=== PATIENT | female | born 2005 | race African-American/Black ===

== ENCOUNTER 2023-09-13 13:50 | Emergency (ER) | payer MEDICAID ==
[~2023-09-13] VITALS: Ht 167.6 cm; Wt 79.0 kg
[2023-09-13 13:57] VITALS: BP 108/55; TEMP 98.4; O2SAT 99
[2023-09-13 13:59] VITALS: PULSE 100; RESP 16
[2023-09-13] MEDS ORDERED: AZITHROMYCIN 500 MG TABLET PO ONE (15:30)
[2023-09-13] MEDS ORDERED: CEFTRIAXONE SODIUM 500 MG/VIAL IM ONE (15:30)
[2023-09-13 17:15] LABS: CLARITY URINE CLOUDY (CLEAR); COLOR URINE DARK YELLOW (YELLOW); GLUCOSE URINE NEGATIVE (NEGATIVE); KETONES URINE NEGATIVE (NEGATIVE); LEUKOCYTE ESTERASE URINE 2+ (NEGATIVE); NITRITE URINE NEGATIVE (NEGATIVE); OCCULT BLOOD URINE NEGATIVE (NEGATIVE); PROTEIN URINE TRACE (NEGATIVE); SPECIFIC GRAVITY URINE 1.025 (1.005-1.030)
[2023-09-13] MEDS ORDERED: CEFTRIAXONE SODIUM 500 MG/VIAL IM NR (17:15)
[2023-09-13] MEDS ORDERED: AZITHROMYCIN 500 MG TABLET PO NR (17:15)
[2023-09-13] MEDS ORDERED: CEPH500C2 MT (17:55)
[2023-09-13] MEDS ORDERED: VALA100044 MT (18:02)
[2023-09-13 18:16] LABS: MUCUS URINE 2+ /lpf (< = 2+); SQUAMOUS EPITHELIAL CELL URINE 3+ /lpf (RARE/1+)
[2023-09-13 18:17] LABS: RBC URINE 0-2 /hpf (0-2)
[2023-09-13 18:18] LABS: BACTERIA URINE 2+
[2023-09-16 09:07] LABS: CHLAMYDIA TRACHOMATIS NAA Positive (Negative); NEISSERIA GONORRHOEAE NAA Positive (Negative)
== END 2023-09-13 18:21 | disposition home or self-care (01) ==
LOC: ER 14:02
DX: O26.891 Other specified pregnancy related conditions, first trimester (principal); J45.909 Unspecified asthma, uncomplicated; Z3A.01 Less than 8 weeks gestation of pregnancy
CPT/HCPCS: 87491; 87591; 81003; 81025; 86592; 96372; 99283; J0696; Z7610 ×2

== ENCOUNTER 2025-01-21 14:16 | Emergency (ER) | payer MEDICAID ==
[~2025-01-21] VITALS: Ht 170.2 cm; Wt 73.0 kg
[2025-01-21 14:16] VITALS: O2SAT 98
[~2025-01-21 14:16] MED LIST: CEPH500C2 MT; VALA100044 MT
[2025-01-21 14:20] VITALS: BP 103/53; PULSE 89; RESP 16; TEMP 37; O2SAT 98
[2025-01-21] MEDS ORDERED: DOXYCYCLINE HYCLATE 100MG CAPSULE PO ONE (15:00)
[2025-01-21] MEDS ORDERED: DOXY100C74 MT (15:11)
[2025-01-21] MEDS ORDERED: METR-167 MT (15:11)
[2025-01-21] MEDS: CEFTRIAXONE SODIUM 500MG VIAL IM ONE (15:46)
[2025-01-21] MEDS: AZITHROMYCIN 500 MG TABLET PO ONE (15:46)
[2025-01-25 04:07] LABS: CHLAMYDIA TRACHOMATIS NAA Positive (Negative); NEISSERIA GONORRHOEAE NAA Negative (Negative)
== END 2025-01-21 15:49 | disposition home or self-care (01) ==
LOC: ER 14:16
DX: N76.0 Acute vaginitis (principal); J45.909 Unspecified asthma, uncomplicated; Z79.624 Long term (current) use of inhibitors of nucleotide synthesis
CPT/HCPCS: 99283; 87491; 87591; 81025; 96372; J0696

== ENCOUNTER 2025-02-20 09:57 | Emergency (ER) | payer MEDICAID ==
[~2025-02-20] VITALS: Ht 170.2 cm; Wt 77.3 kg
[~2025-02-20 09:57] MED LIST changes: +METR-167 MT
[2025-02-20 10:34] VITALS: BP 108/63; PULSE 92; RESP 18; TEMP 36.7; O2SAT 99
== END 2025-02-20 12:05 | disposition left against medical advice (07) ==
LOC: ER 09:57
DX: Z00.8 Encounter for other general examination (principal); J45.909 Unspecified asthma, uncomplicated; Z53.21 Procedure and treatment not carried out due to patient leaving prior to being seen by health care provider
CPT/HCPCS: 81025

== ENCOUNTER 2025-02-22 14:42 | Emergency (ER) | payer MEDICAID ==
[~2025-02-22] VITALS: Ht 170.2 cm; Wt 72.0 kg
[2025-02-22 14:48] VITALS: O2SAT 100
[2025-02-22 14:59] VITALS: BP 99/64; PULSE 60; RESP 16; TEMP 37; O2SAT 100
[2025-02-22 16:57] LABS: CLARITY URINE CLEAR (CLEAR); COLOR URINE YELLOW (YELLOW); GLUCOSE URINE NEGATIVE (NEGATIVE); KETONES URINE NEGATIVE (NEGATIVE); LEUKOCYTE ESTERASE URINE TRACE (NEGATIVE); NITRITE URINE NEGATIVE (NEGATIVE); OCCULT BLOOD URINE NEGATIVE (NEGATIVE); PH URINE 7.5 (4.5-8.0); PROTEIN URINE NEGATIVE (NEGATIVE); SPECIFIC GRAVITY URINE 1.012 (1.005-1.030); UROBILINOGEN URINE 0.2 E.U./dL (0.2-1.0)
[2025-02-22 17:29] LABS: BACTERIA URINE TRACE; RBC URINE 0-2 /hpf (0-2); SQUAMOUS EPITHELIAL CELL URINE FEW /lpf (RARE/1+); WBC URINE 0-2 /hpf (0-2)
[2025-02-22] MEDS ORDERED: PREN-99 MT (19:33)
[2025-02-22] MEDS: CEFTRIAXONE SODIUM 500MG VIAL IM ONE (19:50)
[2025-02-22] MEDS: AZITHROMYCIN 500 MG TABLET PO NR (20:00)
== END 2025-02-22 20:01 | disposition home or self-care (01) ==
LOC: ER 14:42
DX: O26.891 Other specified pregnancy related conditions, first trimester (principal); N89.8 Other specified noninflammatory disorders of vagina; Z20.2 Contact with and (suspected) exposure to infections with a predominantly sexual mode of transmission; Z79.899 Other long term (current) drug therapy; Z79.624 Long term (current) use of inhibitors of nucleotide synthesis; Z3A.09 9 weeks gestation of pregnancy
CPT/HCPCS: 99285; 76801; 86592; 87491; 87591; 81003; 84702; 36415; 96372; J0696

== ENCOUNTER 2025-05-24 19:55 | Emergency (ER) | payer MEDICAID, OTHER ==
[~2025-05-24 19:55] MED LIST changes: +PREN-99 MT
[2025-05-24 21:37] LABS: CLARITY URINE CLEAR (CLEAR); COLOR URINE YELLOW (YELLOW); GLUCOSE URINE NEGATIVE (NEGATIVE); KETONES URINE NEGATIVE (NEGATIVE); LEUKOCYTE ESTERASE URINE 1+ (NEGATIVE); NITRITE URINE NEGATIVE (NEGATIVE); OCCULT BLOOD URINE NEGATIVE (NEGATIVE); PH URINE 6.5 (4.5-8.0); PROTEIN URINE NEGATIVE (NEGATIVE); SPECIFIC GRAVITY URINE 1.009 (1.005-1.030); UROBILINOGEN URINE 0.2 E.U./dL (0.2-1.0)
[2025-05-24 21:47] LABS: BACTERIA URINE 1+; RBC URINE 0-2 /hpf (0-2); SQUAMOUS EPITHELIAL CELL URINE 2+ /lpf (RARE/1+)
[2025-05-24 22:19] VITALS: BP 120/69; PULSE 77; RESP 16; O2SAT 98
[2025-05-26 06:10] LABS: HSV TYPE 2 SPECIFIC AB IGG Reactive (Non Reactive)
[2025-05-27 04:10] LABS: CHLAMYDIA TRACHOMATIS NAA Negative (Negative); NEISSERIA GONORRHOEAE NAA Negative (Negative)
== END 2025-05-24 22:22 | disposition left against medical advice (07) ==
LOC: ER 19:55
DX: O26.892 Other specified pregnancy related conditions, second trimester (principal); O23.592 Infection of other part of genital tract in pregnancy, second trimester; N89.8 Other specified noninflammatory disorders of vagina; Z79.624 Long term (current) use of inhibitors of nucleotide synthesis; Z3A.23 23 weeks gestation of pregnancy
CPT/HCPCS: 36415; 81003; 86592; 86695; 86696; 87210; 87491; 87591; 99283; 99284

== ENCOUNTER 2025-09-05 17:33 | Emergency (ER) | payer OTHER ==
[~2025-09-05] VITALS: Ht 170.2 cm; Wt 88.0 kg
[2025-09-05 17:45] VITALS: TEMP 36.7; O2SAT 99
[2025-09-05 19:27] LABS: GLUCOSE URINE NEGATIVE (NEGATIVE); KETONES URINE NEGATIVE (NEGATIVE); LEUKOCYTE ESTERASE URINE 3+ (NEGATIVE); NITRITE URINE NEGATIVE (NEGATIVE); OCCULT BLOOD URINE NEGATIVE (NEGATIVE); PH URINE 7.0 (4.5-8.0); PROTEIN URINE TRACE (NEGATIVE); SPECIFIC GRAVITY URINE 1.010 (1.005-1.030); UROBILINOGEN URINE 1.0 E.U./dL (0.2-1.0)
[2025-09-05 19:30] VITALS: BP 100/60; PULSE 85; RESP 16; O2SAT 99
[2025-09-05 20:00] LABS: CLARITY URINE HAZY (CLEAR); COLOR URINE STRAW (YELLOW)
[2025-09-05 20:01] LABS: BACTERIA URINE TRACE; RBC URINE NONE SEEN /hpf (0-2); SQUAMOUS EPITHELIAL CELL URINE 2+ /lpf (RARE/1+)
[2025-09-05 20:02] LABS: MUCUS URINE TRACE /lpf (< = 2+)
[2025-09-08 05:09] LABS: CHLAMYDIA TRACHOMATIS NAA Negative (Negative); NEISSERIA GONORRHOEAE NAA Negative (Negative)
== END 2025-09-05 19:35 | disposition home or self-care (01) ==
LOC: ER 17:33
DX: N89.8 Other specified noninflammatory disorders of vagina (principal)
CPT/HCPCS: 81003; 87491; 87591; 99283